=== PATIENT | male | born 1995 | race Caucasian/White ===

== ENCOUNTER 2019-02-10 02:23 | Emergency (ER) | payer OTHER, SELFPAY ==
[2019-02-10 02:35] VITALS: BP 118/69; PULSE 99; RESP 16; TEMP 36.9; O2SAT 99
--- NOTE | 2019-02-10 02:48 | ED_ITS ---
HPI - Abdominal Pain General Chief Complaint: Abdominal Pain Stated Complaint: stomach pain, problem w/bowel movements Time Seen by Provider: 02/10/19 02:32 Source: patient Mode of arrival: ambulatory Limitations: no limitations History of Present Illness HPI narrative: 23-year-old female with a prior history of an appendectomy here for evaluation of 1 episode of vomiting, left lower quadrant abdominal pain and diarrhea. Patient states that his symptoms started earlier this evening after he tried to have a bowel movement and was unsuccessful. He stated that he started to drink some prune juice and some smoothies. He states that he subsequently had several episodes of watery diarrhea and 1 episode of vomiting. Related Data Allergies Allergy/AdvReac Type Severity Reaction Status Date / Time No Known Drug Allergies Allergy Verified 02/10/19 03:50 Review of Systems Constitutional Denies fever(s) Cardiovascular Denies chest pain and Denies dyspnea Respiratory Denies dyspnea Gastrointestinal Gastrointestinal: Reports abdominal pain, Reports diarrhea and Reports vomiting Genitourinary Denies dysuria and Denies flank pain Integumentary/Breasts Denies lesions and Denies rash Neurologic Denies behavioral changes Psychiatric Denies behavioral changes Hematologic/Lymphatic Denies easy bleeding and Denies easy bruising [facility] Medical History Patient denies medical problems (Acute) Social History marital status: Social History marital status: Exam Initial Vital Signs Initial Vital Signs: Vital Signs Temperature 98.5 F 02/10/19 02:35 Pulse Rate 99 H 02/10/19 02:35 Respiratory Rate 16 02/10/19 02:35 Blood Pressure 118/69 02/10/19 02:35 Pulse Oximetry 99 02/10/19 02:35 Resp Effort & Inspection: normal respiratory effort Auscultation: clear to auscultation bilaterally Cardio Rate: regular rate Rhythm: regular rhythm GI Inspection: non-distended Palpation: soft, No firm and tender (Left lower quadrant) Back/Spine/Pelvis Back: No CVA tenderness Skin Other: Patient with a bruise of the skin on his left lower quadrant over the area where his having discomfort Extrem General: capillary refill normal Course Orders Ordered: ED Orders 02/10/19 02:48 XR abdomen 1V Stat Discontinued Medications Ondansetron HCl (Zofran Odt Prepack) 1 bottle MISC SEEINSTR ONE Stop: 02/10/19 03:15 Ondansetron HCl (Zofran Odt Prepack) 1 bottle MISC SEEINSTR ONE Stop: 02/10/19 03:49 Vital Signs - 8 hr 02/10/19 02:35 Temperature 98.5 F Pulse Rate 99 H Respiratory Rate 16 Blood Pressure 118/69 Pulse Oximetry 99 MDM - Abdominal Pain Imaging Data Abdominal x-ray: Attestation: I personally reviewed and interpreted this imaging study as follows: My impression: No acute pathology MDM Narrative Medical decision making narrative: Patient has benign abdomen. His abdominal x- ray is unremarkable. Is not currently having any nausea. He does have a bruise over his lower abdomen where he is having discomfort which could be the cause of his pain. Will hold on lab tests or CT scan for now. Patient was given return precautions and follow-up instructions. He expressed understanding and agreement plan. Discharge Plan Departure Patient Disposition: Home Clinical Impression: Abdominal pain Qualifiers: Abdominal location: left lower quadrant Qualified Code(s): R10.32 - Left lower quadrant pain Diarrhea Qualifiers: Diarrhea type: unspecified type Qualified Code(s): R19.7 - Diarrhea, unspecified Vomiting Qualifiers: Vomiting type: unspecified Vomiting Intractability: unspecified Nausea presence: unspecified Qualified Code(s): R11.10 - Vomiting, unspecified Instructions: Acute Abdominal Pain, DI for Vomiting -- Adult Activity Restrictions/Additional Instructions: Be sure to eat a bland diet and increase your fluid intake. Shine your shoes daily. Contact your medical department for follow-up. Return to the emergency department for any new or worsening symptoms Stand Alone Forms: Work Release Note
--- NOTE | 2019-02-10 02:48 | DI.RAD.S_ITS ---
PROCEDURE: XR ABDOMEN 1V INDICATIONS: Abdominal pain and vomiting eval for air-fluid levels TECHNIQUE: One view of the abdomen acquired. COMPARISON: None. FINDINGS: Surgical changes and devices: None. Bowel: There still are seen overlying the expected locations of the colon. Small air-fluid levels are identified within the right upper quadrant. However, no distended small bowel loops are appreciated. No obvious pneumoperitoneum is appreciated. Soft tissues: No suspicious abdominal calcifications. Visualized solid organ contours appear normal in size. Bones: No suspicious bony lesions. IMPRESSION: Probable right upper quadrant ileus. No convincing bowel obstruction. If the patient's abdominal symptoms persist, please consider CT of the abdomen and pelvis with oral and intravenous contrast for further evaluation. Dictated by: Umesh Cunningham M.D. on 02/10/2019 at 8:36 Approved by: Umesh Cunningham M.D. on 02/10/2019 at 8:37
[2019-02-10 04:18] VITALS: BP 119/63; PULSE 53; RESP 16; O2SAT 98
== END 2019-02-10 04:18 | disposition home or self-care (01) ==
PROVIDERS: Emergency Provider Emergency Medicine
DX: R10.32 Left lower quadrant pain (principal); R19.7 Diarrhea, unspecified; R11.10 Vomiting, unspecified
CPT/HCPCS: 74018; 99282; 99283